=== PATIENT | female | born 1940 | race Two or more races ===

== ENCOUNTER 2018-07-26 10:00 | Emergency (ER) | payer MEDICARE, OTHER ==
[~2018-07-26] VITALS: Ht 162.6 cm; Wt 96.7 kg
[~2018-07-26 10:00] MED LIST: ACET325T45 PO; ATEN-51 PO; CLIN150C18 PO; CRES5 PO; ENAL10TA78 PO; FURO-109 PO; HYDR-906 PO; NAPR-985 PO
[2018-07-26 10:04] VITALS: RESP 18; Ht 162.6 cm; Wt 96.7 kg
[2018-07-26] MEDS ORDERED: HYDROCODONE/APAP (5/325) TAB PO ONE (11:00)
[2018-07-26] MEDS ORDERED: ACYC800T5 PO (11:36)
--- NOTE | 2018-07-26 11:52 | ERD ---
ER Documentation Chief Complaint Chief Complaint rash/pain under left breast x 4 days HPI 78-year-old female patient presents to the ED complaining of a pain of her left breast that started 4 days ago as well as left breast pain that radiates to her back. She describes it as achy and rates it a 4 out of 10. Reports that it became a sharp sensation went she noticed a rash earlier today, as well as burning. Denies any chest pain, shortness of breath, nausea, vomiting, diarrhea, neck stiffness. ROS All systems reviewed and are negative except as per history of present illness. Medications Home Meds Active Scripts Acyclovir* (Zovirax*) 800 Mg Tablet, 800 MG PO 5 TIMES DAILY for 7 Days, TAB Prov:LEANDER LIMON PA-C 07/26/18 Clindamycin Hcl* (Clindamycin Hcl*) 150 Mg Capsule, 150 MG PO TID, #20 CAP Prov:MARAL SNIDER DO 02/21/15 Hydrocodone Bit-Acetaminophen (Angela) 5-325 Mg Tablet, 1 TAB PO Q4H PRN for PAIN, #14 TAB Prov:MARAL SNIDER DO 02/21/15 Naproxen* (Naprosyn*) 500 Mg Tablet, 500 MG PO BID, #20 TAB Prov:MARAL SNIDER DO 02/21/15 Reported Medications Enalapril Maleate* (Vasotec*) 10 Mg Tablet, 10 MG PO DAILY, TAB 02/21/15 Furosemide* (Lasix*) 40 Mg Tablet, 40 MG PO DAILY, TAB 06/06/14 Atenolol* (Atenolol*) 25 Mg Tablet, 25 MG PO DAILY, TAB 06/06/14 Rosuvastatin Calcium* (Crestor*) 5 Mg Tablet, 5 MG PO HS, TAB 06/06/14 Acetaminophen* (Acetaminophen*) 325 Mg Tablet, 325 MG PO HS PRN for PAIN AND OR ELEVATED TEMP, TAB 06/06/14 Allergies Allergies: Coded Allergies: Sulfa (Sulfonamide Antibiotics) (Verified Allergy, Intermediate, RASH, 02/21/15) cephalexin (Verified Allergy, Intermediate, RASH, 02/21/15) sulfamethoxazole (Verified Allergy, Intermediate, RASH, 02/21/15) trimethoprim (Verified Allergy, Intermediate, RASH, 02/21/15) PMhx/Soc History of Surgery: Yes (hip surgery) Anesthesia Reaction: No Hx Neurological Disorder: No Hx Respiratory Disorders: No Hx Cardiac Disorders: Yes (HTN) Hx Psychiatric Problems: No Hx Miscellaneous Medical Probl: No Hx Alcohol Use: No Hx Substance Use: No Hx Tobacco Use: No FmHx Family History: No diabetes, No coronary disease Physical Exam Vitals Vital Signs Date Temp Pulse Resp B/P (MAP) Pulse Ox O2 O2 Flow FiO2 Time Delivery Rate 07/26/18 97.4 62 18 190/84 99 10:04 (119) Physical Exam Const: [id number], well-nourished. In no acute distress. Head: Atraumatic, normocephalic Eyes: Normal Conjunctiva without injection. No purulent discharge. PERRL. EOMI ENT: Normal external ear. Ear canal without erythema. Tympanic membrane pearly arboleda without effusion or bulging. Nasal canal clear with normal turbinates. Moist oropharynx without tonsillar exudates. Non-erythematous pharynx. Uvula midline. No drooling. No trismus. Neck: Full range of motion. No meningismus. No cervical lymphadenopathy. Breast: Grouped vesicular rash on left breast T5 dermatome. No surrounding erythema, edema, purulent discharge noted. Resp: Clear to auscultation bilaterally. No wheezing, rhonchi, rales, or crackles. No accessory muscle use. No retractions. Cardio: Regular rate and rhythm. No murmurs, rubs or gallops. Abd: Soft, non tender, non distended. Normal bowel sounds. No palpable masses. No rebound tenderness. No guarding. Skin: No petechiae or purpura. Vesicular grouped lesions noted of the left inferior breaststhis is following a dermatome. No surrounding erythema. Back: No midline tenderness. No CVA tenderness. Ext: No cyanosis, or edema. Neur: Awake and alert. Psych: Normal Mood and Affect Results 24 hrs Current Medications Medications Dose Sig/Ana Start Time Status Last (Trade) Ordered Route PRN Stop Time Admin Dose Reason Admin 1 tab ONCE ONCE 07/26/18 DC 07/26/18 Acetaminophen PO 11:00 07/26/18 11:00 / 11:01 Hydrocodone Bitart (Angela (5/325)) Procedures/MDM 78-year-old female patient with no significant past medical history presents to ED complaining of a rash noted of the left breast that started 4 days ago. Patient is afebrile and nontoxic-appearing. Patient's blood pressure is 190/84. Blood Pressure Assessment: Patient's blood pressure was elevated (>120/80) but appears stable without evidence of hypertension emergency or urgency. The patient was counseled about the risks of hypertension and urged to pursue outpatient monitoring and therapy within a week with their primary care physician. Low suspicion for anaphylaxis, scabies, SJS/TEN, TSS, Lyme's Disease, syphilis, RMSF, shingles, disseminated gonorrhea chlamydia, DIC, TTP, ITP, erythema multiforme, sepsis, cellulitis, necrotizing fasciitis, gangrene, meningococcemia, allergic contact dermatitis, urticaria, eczema, tinea infection, or other emergent conditions. Diagnosis: Shingles Discharge medications: Tylenol, Acyclovir Follow up with primary care physician in 1-2 days. Instructed patient to return to the ED sooner for any worsening symptoms. Patient's questions were answered. Patient is hemodynamically stable. Patient understood and agreed with discharge plan. Patient discharged stable. Disclaimer: Inadvertent spelling and grammatical errors are likely due to EHR/dictation software use and do not reflect on the overall quality of patient care. Also, please note that the electronic time recorded on this note does not necessarily reflect the actual time of the patient encounter. Departure Diagnosis: Primary Impression: Rash Condition: Stable Patient Instructions: Shingles (Herpes Zoster) Referrals: [facility] YOU HAVE RECEIVED A MEDICAL SCREENING EXAM AND THE RESULTS INDICATE THAT YOU DO NOT HAVE A CONDITION THAT REQUIRES URGENT TREATMENT IN THE EMERGENCY DEPARTMENT. FURTHER EVALUATION AND TREATMENT OF YOUR CONDITION CAN WAIT UNTIL YOU ARE SEEN IN YOUR DOCTORS OFFICE WITHIN THE NEXT 1-2 DAYS. IT IS YOUR RESPONSIBILITY TO MAKE AN APPOINTMENT FOR FOLOW-UP CARE. IF YOU HAVE A PRIMARY DOCTOR --you should call your primary doctor and schedule an appointment IF YOU DO NOT HAVE A PRIMARY DOCTOR YOU CAN CALL OUR PHYSICIAN REFERRAL HOTLINE AT IF YOU CAN NOT AFFORD TO SEE A PHYSICIAN YOU CAN CHOSE FROM THE FOLLOWING [facility] CLINICS [facility] [address] [facility] [address] [facility] [facility] [address] [facility] [facility] [address] [facility]. [facility] [address] [facility] [facility]. [address] [facility]. [facility] YOU HAVE RECEIVED A MEDICAL SCREENING EXAM AND THE RESULTS INDICATE THAT YOU DO NOT HAVE A CONDITION THAT REQUIRES URGENT TREATMENT IN THE EMERGENCY DEPARTMENT. FURTHER EVALUATION AND TREATMENT OF YOUR CONDITION CAN WAIT UNTIL YOU ARE SEEN IN YOUR DOCTORS OFFICE WITHIN THE NEXT 1-2 DAYS. IT IS YOUR RESPONSIBILITY TO MAKE AN APPOINTMENT FOR FOLOW-UP CARE. IF YOU HAVE A PRIMARY DOCTOR --you should call your primary doctor and schedule and appointment IF YOU DO NOT HAVE A PRIMARY DOCTOR YOU CAN CALL OUR PHYSICIAN REFERRAL HOTLINE AT . IF YOU CAN NOT AFFORD TO SEE A PHYSICIAN YOU CAN CHOSE FROM THE FOLLOWING [facility] INSTITUTIONS[facility] [address] [place] [address] [facility] [address] [place] [address] [facility] [address] [place] [address] [facility] URGENT CARE/SPECIALTIES Additional Instructions: Call your primary care doctor TOMORROW for an appointment during the next 2-3 days.See the doctor sooner or return here if your condition worsens before your appointment time. LEANDER LIMON PA-C July 26, 2018 11:52
[2018-07-26 11:58] VITALS: BP 130/72; PULSE 57
== END 2018-07-26 12:00 | disposition home or self-care (01) ==
LOC: FTE 10:00
DX: B02.9 Zoster without complications (principal); I10 Essential (primary) hypertension
CPT/HCPCS: 99283